=== PATIENT | male | born 1980 | race Two or more races ===

== ENCOUNTER 2019-01-01 14:41 | Emergency (ER) | payer SELFPAY ==
[~2019-01-01] VITALS: Ht 167.6 cm; Wt 90.7 kg
[2019-01-01] MEDS ORDERED: MORPHINE SULFATE 4 MG/ML VIAL. IV ONE (15:45)
[2019-01-01] MEDS ORDERED: IV NORMAL SALINE 1000ML BAG 1,000 ML IV ONE (15:45)
[2019-01-01] MEDS ORDERED: NEOMY/BACITR/POLYMYXIN OINT PACKET. TP ONE (15:45)
[2019-01-01 16:06] VITALS: BP 151/93
--- NOTE | 2019-01-01 16:19 | PHYS DOC ---
Past Medical History Past Medical History: No Pertinent History Past Surgical History: No Surgical History Alcohol Use: Occasionally Drug Use: None Adult General Chief Complaint Chief Complaint: HAND PROBLEM HPI HPI Patient is a 38 year old male who presents with sagastume to his left forearm and hand. Sagastume occurred while he was working on a radiator approximately 2 hours ago. Rates his pain as 9 out of 10 sharp and throbbing. Did not take any medication prior to arrival. Review of Systems Review of Systems Constitutional: Denies fever or chills [] Eyes: Denies change in visual acuity, redness, or eye pain [] HENT: Denies nasal congestion or sore throat [] Respiratory: Denies cough or shortness of breath [] Cardiovascular: No additional information not addressed in HPI [] GI: Denies abdominal pain, nausea, vomiting, bloody stools or diarrhea [] : Denies dysuria or hematuria [] Musculoskeletal: Denies back pain or joint pain [] Integument: Denies rash or skin lesions. Reports burn to L forearm/hand Neurologic: Denies headache, focal weakness or sensory changes [] Endocrine: Denies polyuria or polydipsia [] Complete systems were reviewed and found to be within normal limits, except as documented in this note. Current Medications Current Medications Current Medications Medications (Trade) Dose Ordered Sig/Lyla Start Time Stop Time Status Last Admin Dose Admin Morphine Sulfate (Morphine Sulfate) 4 mg 1X ONCE 01/01/19 15:45 01/01/19 15:46 DC 01/01/19 16:02 4 MG Neomycin/ Polymyxin/ Bacitracin (Triple Antibiotic Ointment) 2 pkt 1X ONCE 01/01/19 15:45 01/01/19 15:46 DC 01/01/19 16:02 2 PKT Sodium Chloride 1,000 ml @ 1,000 mls/hr 1X ONCE 01/01/19 15:45 01/01/19 16:44 01/01/19 16:02 1,000 MLS/HR Allergies Allergies Allergies Coded Allergies Type Severity Reaction Last Updated Verified No Known Drug Allergies 01/01/19 No Physical Exam Physical Exam Constitutional: Well developed, well nourished, no acute distress, non-toxic appearance. [] HENT: Normocephalic, atraumatic, bilateral external ears normal, oropharynx moist, no oral exudates, nose normal. [] Eyes: PERRLA, EOMI, conjunctiva normal, no discharge. [] Neck: Normal range of motion, no tenderness, supple, no stridor. [] Cardiovascular:Heart rate regular rhythm, no murmur [] Lungs & Thorax: Bilateral breath sounds clear to auscultation [] Abdomen: Bowel sounds normal, soft, no tenderness, no masses, no pulsatile masses. [] Skin: Warm, dry, no erythema, no rash. [] Back: No tenderness, no CVA tenderness. [] Extremities: No tenderness, no cyanosis, no clubbing, ROM intact. Has edema and erythema to the L posterior forearm and palm of hand, circumferential burn around digits 2-5. Blistering on palm and thumb. Rules of 9 approximately 4%. Neurologic: Alert and oriented X 3, normal motor function, normal sensory function, no focal deficits noted. [] Psychologic: Affect normal, judgement normal, mood normal. [] Current Patient Data Vital Signs Vital Signs Date Time Temp Pulse Resp B/P (MAP) Pulse Ox O2 Delivery O2 Flow Rate FiO2 01/01/19 15:13 98.0 81 18 176/104 (128) 98 Room Air 98.0 EKG EKG [] Radiology/Procedures Radiology/Procedures [] Course & Med Decision Making Course & Med Decision Making Pertinent Labs and Imaging studies reviewed. (See chart for details) Appears to be circumferential sagastume around fingers and has sagastume to hand. Discussed case with [facility]. Dr. Maria (Burn) and Dr. Bell agreed to have patient transferred to ER at [facility] for further evaluation. Will transfer. Patient prefers to go POV. Dragon Disclaimer Dragon Disclaimer This electronic medical record was generated, in whole or in part, using a voice recognition dictation system. Departure Departure Impression: Primary Impression: Partial thickness burn Disposition: 02 TRANSFER T-[facility] ([facility]) Condition: STABLE SARAI GUERRERO [employer] CH[employer] Jan 01, 2019 16:19
== END 2019-01-01 16:44 | disposition home or self-care (01) ==
LOC: ER 14:41
DX: T23.252A Burn of second degree of left palm, initial encounter (principal); T23.212A Burn of second degree of left thumb (nail), initial encounter; T22.112A Burn of first degree of left forearm, initial encounter; T31.0 Burns involving less than 10% of body surface; X16.XXXA Contact with hot heating appliances, radiators and pipes, initial encounter; Y93.89 Activity, other specified; Y92.89 Other specified places as the place of occurrence of the external cause; Y99.0 Civilian activity done for income or pay
CPT/HCPCS: 96374; 99284; J2270; J7030